=== PATIENT | male | born 1990 | race Asian ===

== ENCOUNTER 2019-05-08 11:13 | Emergency (ER) | payer SELFPAY ==
--- NOTE | 2019-05-08 11:21 | ED ---
Psychiatric Complaint - HPI Summary HPI Summary: This patient is a 28 year old male presenting to [facility] from [facility] on a 945 (voluntary) with a chief complaint of thoughts of harming himself and others. He states he does not normally have ideations, but when he sees sharp objects or encounters a dangerous situation the thoughts become triggered that he wants to use them to harm himself or others. He states this has concerned him. He states he has no plan to act on any of those thoughts but he is concerned that they are there. He states he does not know what is causing, other than maybe long-term stress. He states he has been sleeping and eating well. Pt denies any fever, chills, erythema of eyes, sore throat, CP, SOB, cough , abdominal pain, N/V, dysuria, hematuria, myalgia, edema, rash, or dizziness. - History Of Current Complaint Hx Obtained From: Patient Onset/Duration: Lasting Hours Has Suicidal: Reports: Thoughts. Denies: With A Plan, Demonstrates Gesture, Has Prior Attempt(s) Has Homicidal: Reports: Thoughts. Denies: With A Plan, Demonstrates Gesture, Has Prior Attempt(s) - Allergies/Home Medications Allergies/Adverse Reactions: Allergies Allergy/AdvReac Type Severity Reaction Status Date / Time No Known Allergies Allergy Verified 05/08/19 11:21 Home Medications: Home Medications Unobtainable 05/08/19 [History Confirmed 05/08/19] PMH/Surg Hx/FS Hx/Imm Hx Endocrine/Hematology History: Denies: Hx Diabetes EENT History: Denies: Hx Deafness - Family History Known Family History: Negative: Respiratory Disease - Social History Alcohol Use: None Hx Substance Use: No Hx Tobacco Use: No Review of Systems Negative: Fever, Chills Negative: Erythema Negative: Sore Throat Negative: Chest Pain Negative: Shortness Of Breath, Cough Negative: Abdominal Pain, Vomiting, Nausea Negative: dysuria, hematuria Negative: Myalgia, Edema Negative: Rash Neurological: Other - Neg: Dizziness Psychological: Other - SI and HI All Other Systems Reviewed And Are Negative: Yes Physical Exam - Summary Physical Exam Summary: Constitutional: Well-developed, Well-nourished, Alert. (-) Distressed Skin: Warm, Dry HENT: Normocephalic; Atraumatic Eyes: Conjunctiva normal Neck: Musculoskeletal ROM normal neck. (-) JVD, (-) Stridor, (-) Tracheal deviation Cardio: Rhythm regular, rate normal, Heart sounds normal; Intact distal pulses; The pedal pulses are 2+ and symmetric. Radial pulses are 2+ and symmetric. (-) Murmur Pulmonary/Chest wall: Effort normal. (-) Respiratory distress, (-) Wheezes, (-) Rales Abd: Soft, (-) tenderness, (-) Distension, (-) Guarding, (-) Rebound Musculoskeletal: (-) Edema Lymph: (-) Cervical adenopathy Neuro: Alert, Oriented x3 Psych: Mood and affect Normal Triage Information Reviewed: Yes Vital Signs Reviewed: Yes Procedures - Sedation Patient Received Moderate/Deep Sedation with Procedure: No Diagnostics - Laboratory Result Diagrams: 05/08/19 11:26 05/08/19 11:26 Lab Statement: Any lab studies that have been ordered have been reviewed, and results considered in the medical decision making process. Course/Dx - Course Course Of Treatment: This patient is a 28 year old male presenting to [facility] from [facility] on a 945 (voluntary) with a chief complaint of thoughts of harming himself and others. He states he does not normally have ideations, but when he sees sharp objects or encounters a dangerous situation the thoughts become triggered that he wants to use them to harm himself or others. The mental health police crime scene technician Gloria discussed the case with Dr. Putnam, they recommended discharge with supportive currently in place. There is no active threat against himself or others. - Differential Dx/Clinical Impression Provider Diagnosis: Anxiety Discharge ED - Sign-Out/Discharge Documenting (check all that apply): Patient Departure - Per [facility] - Discharge Plan Condition: Good Disposition: HOME Referrals: No Primary Care Phys,NOPCP [Primary Care Provider] - - Attestation Statements Document Initiated by Scribe: Yes Documenting Scribe: Justin Garcia Provider For Whom Scribe is Documenting (Include Credential): Demario Bo MD Scribe Attestation: Justin Ramos, scribed for Demario Bo MD on 05/08/19 at 1404.
[2019-05-08 11:34] LABS: ABS Eosinophils 0.1 10^3/ul (0-0.6); ABS Lymphocytes 2.4 10^3/ul (1.0-4.8); ABS Monocytes 0.5 10^3/ul (0-0.8); ABS Neutrophils 3.3 10^3/ul (1.5-7.7); Eosinophil % 0.9 %; Hematocrit 45 % (42-52); Hemoglobin 15.4 g/dL (14.0-18.0); Lymphocyte % 37.7 %; Mean Corpuscular HGB Conc 34 g/dL (31-36); Mean Corpuscular Hemoglobin 29 pg (27-31); Mean Corpuscular Volume 85 fL (80-94); Mean Platelet Volume 8.6 fL (7.4-10.4); Nucleated Red Blood Cells % 0.1; Platelet Count 219 10^3/uL (150-450); Red Blood Count 5.28 10^6 /uL (4.18-5.48); Red Cell Distribution Width 13 % (10-15); White Blood Count 6.3 10^3/uL (3.5-10.8)
[2019-05-08 11:56] LABS: ALT 70 U/L (7-52); AST 32 U/L (13-39); Albumin 4.6 g/dL (3.2-5.2); Albumin/Globulin Ratio 1.8 (1-3); Alkaline Phosphatase 64 U/L (34-104); Anion Gap 7 mmol/L (2-11); BUN/Creatinine Ratio 12.6 (8-20); Blood Urea Nitrogen 11 mg/dL (6-24); CO2 Carbon Dioxide 28 mmol/L (22-32); Calcium 9.1 mg/dL (8.6-10.3); Chloride 104 mmol/L (101-111); EGFR African American 126.4 (>60); EGFR Non-African American 104.5 (>60); Globulin 2.5 g/dL (2-4); Glucose 91 mg/dL (70-100); Potassium 3.9 mmol/L (3.5-5.0); Sodium 139 mmol/L (135-145); Total Protein 7.1 g/dL (6.4-8.9)
[2019-05-08 12:12] LABS: Acetaminophen < 15 mcg/mL; Alcohol < 10 mg/dL (<10); Salicylate < 2.50 mg/dL (<30)
[2019-05-08 12:15] LABS: Urine Appearance Clear; Urine Bilirubin Negative (Negative); Urine Blood Negative (Negative); Urine Color Yellow; Urine Glucose Negative (Negative); Urine Ketones Negative (Negative); Urine Nitrite Negative (Negative); Urine Protein Negative (Negative); Urine Specific Gravity 1.023 (1.010-1.030); Urine Urobilinogen Negative (Negative)
[2019-05-08 12:27] LABS: TSH (Thyroid Stimulating Horm) 3.19 mcIU/mL (0.34-5.60)
[2019-05-08 12:37] LABS: Urine Benzodiazepine Screen None Detected (None Detect); Urine Opiates Screen None Detected (None Detect)
[2019-05-08 14:30] VITALS: BP 118/87
== END 2019-05-08 14:55 | disposition home or self-care (01) ==
LOC: ED 11:13
DX: F41.9 Anxiety disorder, unspecified (principal)
CPT/HCPCS: 36415; 80053; 80307; 80320; 80329; 81003; 84443; 85025; 99284; G0480